=== PATIENT | male | born 1970 | race Caucasian/White ===

== ENCOUNTER 2023-05-25 20:53 | Observation (INO) ==
--- NOTE | 2023-05-25 21:08 | DR.ABDMALE ---
HPI Time seen Time Seen by Provider: 05/25/23 21:07 Complaint Chief Complaint Doctors Comments: Patient has a history of GERD and a history of diverticulosis. He has been having epigastric pain and left upper quadrant and lower quadrant pain for 2 days. Patient states that the pain is an aching pain. He has had nausea, felt distended,and has not eaten since yesterday. Patient denies: fever, hematemesis, hematochezia, weakness, dizziness,vomiting. PMH PMH Past Medical History: Depression, GERD, Hypertension and Sleep Apnea Past Surgical History: Yes Surgical History: Ortho Surgery and Other Family History Family Medical History: Diabetes Mellitus, Coronary Artery Disease, Heart Failure and Hypertension Social History Do you use any recreational Drugs:: No ROS Review of Systems Constitutional: No Symptoms Reported Eyes: No Symptoms Reported ENTM: No Symptoms Reported Respiratoy: No Symptoms Reported Cardiovascular: No Symptoms Reported Gastrointestinal/Abdominal: Abdominal Pain, Food Intolerance and Other (Abdominal Distention); negative Diarrhea, Nausea or Vomiting Genitourinary: No Symptoms Reported Neurological: No Symptoms Reported Musculoskeletal: No Symptoms Reported Integumentary: No Symptoms Reported Hematologic/Lymphatic: No Symptoms Reported Endocrine: No Symptoms Reported Psychiatric: No Symptoms Reported All Other Systems: Reviewed and Negative PE Vital Signs Vital Signs: Temp Pulse Resp BP Pulse Ox O2 Del Method 05/25/23 20:54 98.3 F 90 20 129/79 94 L Room Air General Limitations: No Limitations General Appearance: Alert and In No Apparent Distress Head Head Exam: Normal Inspection Eyes Eye exam: Normal Appearance ENT ENT Exam: Normal Exam Neck Neck Exam: Normal Inspection Chest Chest Inspection: Normal Inspection Respiratory Respiratory Exam: Normal Lung Sounds Bilat Respiratory Exam: Bilateral: Clear to Auscultation Cardiovascular Cardiovascular Exam: Regular Rate and Normal Rhythm Abdominal Exam Abdominal Exam: Distention, Tenderness and Hypoactive Bowel Sounds; negative Guarding or Rebound Abdominal Tenderness: LUQ, LLQ and Epigastrium Rectal Rectal Exam: Deferred Back Back Exam: Normal Inspection Extremeties Extremities Exam: Normal Inspection Exam: Male: Deferred Neurologic Neurological Exam: Alert and Oriented X3 Psychiatric Psychiatric Exam: Normal Affect and Normal Mood Skin Skin Exam: Warm, Dry, Intact and Normal Color MDM Differential Diagnosis Differential Diagnosis: Bowel Obstruction, Cholcystitis, Cholelethiasis, Diverticular disease, Inflammatory BD, Ischemic Bowel and Pancreatitis Other differential diagnosis: electrolyte disorder,perforation COURSE Treatment Treatment: Patient was brought to an exam rm and iv access was initatiated and labs wer drawn.Patient was given NS 1 bolus iv,protonix 4omg iv,and zofran 4 mg iv.Patient's abd/pelvis CT w/ contrast revealed a mechanical SBO likely secondary to adhesions. Discussed case with Dr Jauregui.Dr Jauregui has accepted the patient to his service. [facility] Labs Reviewed Laboratory Results Reviewed?: Yes 05/25/23 22:55 05/25/23 22:55 Laboratory: WBC 13.9 X10^3/uL (3.6-10.0) H 05/25/23 22:55 RBC 5.16 X10^6/uL (4.7-6.0) 05/25/23 22:55 Hgb 15.2 g/dL (13.5-18.0) 05/25/23 22:55 Hct 46.1 % (42.0-54.0) 05/25/23 22:55 MCV 89.4 fL (80.0-100.0) 05/25/23 22:55 MCH 29.4 pg (27.0-34.0) 05/25/23 22:55 MCHC 32.9 g/dL (33.0-35.0) L 05/25/23 22:55 RDW 13.5 % (11.6-16.5) 05/25/23 22:55 Plt Count 229 X10^3/uL (150.0-450.0) 05/25/23 22:55 MPV 8.5 fL (7.4-11.0) 05/25/23 22:55 Neut % (Auto) 84.4 % (42.0-75.0) H 05/25/23 22:55 Lymph % (Auto) 8.3 % (21.0-51.0) L 05/25/23 22:55 Kimball % (Auto) 6.0 % (0.0-13.0) 05/25/23 22:55 Eos % (Auto) 1.0 % (0.9-2.9) 05/25/23 22:55 Baso % (Auto) 0.3 % (0.2-1.0) 05/25/23 22:55 Neut # (Auto) 11.7 x10^3/uL (2.2-4.8) H 05/25/23 22:55 Lymph # (Auto) 1.1 X10^3/uL (1.3-2.9) L 05/25/23 22:55 Kimball # (Auto) 0.8 x10^3/uL (0.3-0.8) 05/25/23 22:55 Eos # (Auto) 0.1 x10^3/uL (0.0-0.2) 05/25/23 22:55 Baso # (Auto) 0.0 X10^3/uL (0.0-0.1) 05/25/23 22:55 Absolute Nucleated RBC 0.0 /100WBC 05/25/23 22:55 Sodium 136 mmol/L (136-145) 05/25/23 22:55 Corrected Sodium 137 mmol/L (136-145) 05/25/23 22:55 Potassium 3.7 mmol/L (3.5-5.1) 05/25/23 22:55 Chloride 102 mmol/L (98-107) 05/25/23 22:55 Carbon Dioxide 29.3 mmol/L (21-32) 05/25/23 22:55 BUN 10 mg/dL (7-18) 05/25/23 22:55 Creatinine 0.92 mg/dL (0.70-1.30) 05/25/23 22:55 Est GFR (MDRD) Af Amer > 60 (>60) 05/25/23 22:55 Est GFR (MDRD) Non-Af > 60 (>60) 05/25/23 22:55 Glucose 125 mg/dL (65-99) H 05/25/23 22:55 Lactic Acid 1.1 mmol/L (0.4-2.0) 05/25/23 22:55 Calcium 9.2 mg/dL (8.5-10.1) 05/25/23 22:55 Corrected Calcium 9.8 mg/dL (8.5-10.1) 05/25/23 22:55 Total Bilirubin 1.30 mg/dL (0.2-1.0) H 05/25/23 22:55 AST 26 Units/L (15-37) 05/25/23 22:55 ALT 56 Units/L (12-78) 05/25/23 22:55 Alkaline Phosphatase 97 Units/L (46-116) 05/25/23 22:55 C-Reactive Protein 27.00 mg/L (0-3.0) H 05/25/23 22:55 Total Protein 6.9 g/dL (6.4-8.2) 05/25/23 22:55 Albumin 3.3 g/dL (3.4-5.0) L 05/25/23 22:55 Globulin 3.6 g/dL (2.5-4.5) 05/25/23 22:55 Albumin/Globulin Ratio 0.9 Ratio (1.1-2.1) L 05/25/23 22:55 Amylase 11 Units/L (25-115) L 05/25/23 22:55 Lipase 9 Units/L (16-77) L 05/25/23 22:55 XRAY XRAY Interpreted by: Radiologist X-ray Results: EXAM: ABDOMEN/PELVIS WITH CON HISTORY: PT C/O LEFT UPPER ABD PAIN THAT STARTED LAST NIGHT; HERNIA SX, HTN, DIABETIC COMPARISON: None. TECHNIQUE: Axial CT images of the abdomen and pelvis were obtained after the administration of IV contrast and reformatted into coronal and sagittal planes for further evaluation. Radiation dose: 1035.10 mGy-cm total DLP FINDINGS: Lung bases are clear. Stomach appears normal. Diffuse fatty infiltration of the liver. Spleen, pancreas and adrenal glands are unremarkable. Gallbladder appears normal with no biliary dilatation. Homogeneous enhancement of the kidneys without hydronephrosis or hydroureter. Unremarkable appearance of the urinary bladder. Imaged reproductive structures are unremarkable. Colonic diverticulosis without diverticulitis. Multiple loops of [id number] distended gas and fluid-filled loops of sma ll bowel. Distal small bowel is decompressed with the transition point appearing to be in the right lower quadrant. No evidence of acute appendicitis. No pneumoperitoneum. No significant fluid collection. No adenopathy. No acute osseous abnormality. IMPRESSION: 1. Findings are concerning for a mild mechanical small bowel obstruction which appears to be in the right lower quadrant; likely secondary to adhesions. 2. Diffuse fatty infiltration of the liver. 3. Colonic diverticulosis without diverticulitis. THIS IS AN ELECTRONICALLY VERIFIED FINAL REPORT 05/26/2023 12:39 AM - Electronically signed by Alvaro Dobbins MD Opioid Opioid Risk Tool Total: 0 Total Score Risk Category: Low Risk Copyright: William CHANG predicting aberrant behaviors Discharge Plan Diagnosis Discharge Problem: SBO (small bowel obstruction) Discharge Plan Patient Disposition: 09 ADMITTED INPATIENT Condition: Stable Prescriptions: No Action telmisartan [Micardis] 40 MG tablet 40 mg PO DAILY tamsulosin [Flomax] 0.4 mg capsule 0.4 mg PO QDAY Qty: 10 0RF metformin 500 mg tablet 500 mg PO BID omeprazole 40 mg capsule,delayed release(DR/EC) 40 mg PO QDAY ropinirole 0.5 mg tablet 0.5 mg PO QDAY PRN ergocalciferol (vitamin D2) 1,250 mcg (50,000 unit) capsule 1,250 mcg PO WEEKLY escitalopram oxalate 10 mg tablet 10 mg PO QDAY Ozempic 0.25 mg or 0.5 mg (2 mg/3 mL) pen injector 0.25 mg SUBCUT WEEKLY Patient Comments: [NO ORIGINAL SIG] Claritin-D 24 Hour 10-240 mg Tablet Extended Release 24 Hr 1 tab PO QDAY PRN Health Concerns: Post Hospitalization: new medications and changes needed to prevent readmission or further decline. Pt educated and given instructions on all concerns. Plan of Treatment: Continue with present treatment and follow up plan. Pt is to keep follow up appointment as instructed and take medications as ordered. Orders to Discharge Patient Discharge Orders: Transfer (Routine); Ordered 05/26/23 Ordered By: Mei Mayo Follow ups/Referrals Follow ups/Referrals: ZECHARIAH FOX [Primary Care Provider] - 3 days Instructions Stand Alone Forms: Post Hospital Follow Up Care
[2023-05-25] MEDS ORDERED: NS 1,000 ML IV 1,000 ML IV ONE (22:43)
[2023-05-25] MEDS ORDERED: PROTONIX INJ 40 MG VIAL IVP ONE (22:43)
[2023-05-25] MEDS ORDERED: PROTONIX INJ 40 MG VIAL ONE (22:49)
[2023-05-25] MEDS ORDERED: NS 1,000 ML IV 1,000 ML ONE (22:49)
[2023-05-25 23:08] LABS: BASOPHILS % (AUTO) 0.3 % (0.2-1.0); EOSINOPHILS # (AUTO) 0.1 x10^3/uL (0.0-0.2); HEMATOCRIT 46.1 % (42.0-54.0); HEMOGLOBIN 15.2 g/dL (13.5-18.0); LYMPHOCYTES # (AUTO) 1.1 X10^3/uL (1.3-2.9); LYMPHOCYTES % (AUTO) 8.3 % (21.0-51.0); MEAN CORPUSCULAR HEMOGLOBIN 29.4 pg (27.0-34.0); MEAN CORPUSCULAR HGB CONC 32.9 g/dL (33.0-35.0); MEAN CORPUSCULAR VOLUME 89.4 fL (80.0-100.0); MEAN PLATELET VOLUME 8.5 fL (7.4-11.0); MONOCYTES # (AUTO) 0.8 x10^3/uL (0.3-0.8); NEUTROPHILS # (AUTO) 11.7 x10^3/uL (2.2-4.8); NEUTROPHILS % (AUTO) 84.4 % (42.0-75.0); PLATELET COUNT 229 X10^3/uL (150.0-450.0); RED BLOOD COUNT 5.16 X10^6/uL (4.7-6.0); RED CELL DISTRIBUTION WIDTH 13.5 % (11.6-16.5); WHITE BLOOD COUNT 13.9 X10^3/uL (3.6-10.0)
[2023-05-25 23:18] LABS: ALANINE AMINOTRANSFERASE 56 Units/L (12-78); ALBUMIN 3.3 g/dL (3.4-5.0); ALKALINE PHOSPHATASE 97 Units/L (46-116); AMYLASE 11 Units/L (25-115); ASPARTATE AMINO TRANSFERASE 26 Units/L (15-37); BLOOD UREA NITROGEN 10 mg/dL (7-18); CALCIUM 9.2 mg/dL (8.5-10.1); CARBON DIOXIDE 29.3 mmol/L (21-32); CHLORIDE 102 mmol/L (98-107); COR CA(FOR HYPOALB) 9.8 mg/dL (8.5-10.1); COR NA(FOR HYPERGLY) 137 mmol/L (136-145); CREATININE 0.92 mg/dL (0.70-1.30); GLUCOSE 125 mg/dL (65-99); LIPASE 9 Units/L (16-77); POTASSIUM 3.7 mmol/L (3.5-5.1); SODIUM 136 mmol/L (136-145); TOTAL PROTEIN 6.9 g/dL (6.4-8.2); eGFR NON BLACK RACES > 60 (>60)
[2023-05-25] MEDS ORDERED: OMNIPAQUE 350 mg/mL 100 mL BTL 100 ML ONE (23:37)
--- NOTE | 2023-05-26 00:42 | CT ---
EXAM:ABDOMEN/PELVIS WITH CONHISTORY:PT C/O LEFT UPPER ABD PAIN THAT STARTED LAST NIGHT; HERNIA SX, HTN, DIABETICCOMPARISON:None.TECHNIQUE:Axial CT images of the abdomen and pelvis were obtained after the administration of IV contrast and reformatted into coronal and sagittal planes for further evaluation.Radiation dose: 1035.10 mGy-cm total DLPFINDINGS:Lung bases are clear.Stomach appears normal.Diffuse fatty infiltration of the liver.Spleen, pancreas and adrenal glands are unremarkable.Gallbladder appears normal with no biliary dilatation.Homogeneous enhancement of the kidneys without hydronephrosis or hydroureter.Unremarkable appearance of the urinary bladder.Imaged reproductive structures are unremarkable.Colonic diverticulosis without diverticulitis.Multiple loops of gleb-up-kdwquzeoac distended gas and fluid-filled loops of small bowel. Distal small bowel is decompressed with the transition point appearing to be in the right lower quadrant.No evidence of acute appendicitis.No pneumoperitoneum.No significant fluid collection.No adenopathy.No acute osseous abnormality.IMPRESSION:1. Findings are concerning for a mild mechanical small bowel obstruction which appears to be in the right lower quadrant; likely secondary to adhesions.2. Diffuse fatty infiltration of the liver.3. Colonic diverticulosis without diverticulitis.THIS IS AN ELECTRONICALLY VERIFIED FINAL REPORT05/26/2023 12:39 AM - Electronically signed by Alvaro Dobbins MD
[2023-05-26] MEDS ORDERED: DILAUDID INJ IVP PRN (02:07)
[2023-05-26] MEDS ORDERED: ZOFRAN INJ 4 MG VIAL IVP ONE (02:08)
[2023-05-26] MEDS ORDERED: ZOSYN VIAL 3.375 GRAMS 3.375 G in NS 100 ML IV 100 ML IV SCH (02:12)
[2023-05-26] MEDS ORDERED: ZOFRAN INJ 4 MG VIAL ONE (02:19)
[2023-05-26] MEDS ORDERED: DILAUDID INJ ONE (02:19)
[2023-05-26] MEDS ORDERED: NS 100 ML IV 100 ML ONE ×2 (02:31→12:26)
[2023-05-26] MEDS ORDERED: LR 1,000 ML IV 1,000 ML IV ONE (02:31)
[2023-05-26] MEDS ORDERED: ZOSYN VIAL 3.375 GRAMS IV ONE (02:31)
[2023-05-26] MEDS: LR 1,000 ML IV 1,000 ML IV SCH ×4 (02:50→23:04)
[2023-05-26] MEDS ORDERED: ROPINIROLE 0.5 MG PO PRN (03:47)
[2023-05-26] MEDS ORDERED: LORATADINE PO PRN (03:47)
[2023-05-26] MEDS ORDERED: [UNRECOGNIZED DRUG - OTHER] PO PRN (03:47)
[2023-05-26] MEDS ORDERED: PSEUDOEPHEDRINE PO PRN (03:47)
[2023-05-26 04:11] VITALS: BMI 47.3
[2023-05-26] MEDS: ZOSYN VIAL 3.375 GRAMS 3.375 G in NS 100 ML IV 100 ML IV SCH ×3 (04:13→20:11)
[2023-05-26 04:26] LABS: HEMOGLOBIN 14.3 g/dL (13.5-18.0); MEAN PLATELET VOLUME 8.4 fL (7.4-11.0)
[2023-05-26 04:32] LABS: BASOPHILS % (AUTO) 0.5 % (0.2-1.0); EOSINOPHILS # (AUTO) 0.3 x10^3/uL (0.0-0.2); EOSINOPHILS % (AUTO) 2.4 % (0.9-2.9); HEMATOCRIT 43.1 % (42.0-54.0); LYMPHOCYTES # (AUTO) 1.6 X10^3/uL (1.3-2.9); MEAN CORPUSCULAR HEMOGLOBIN 29.7 pg (27.0-34.0); MEAN CORPUSCULAR HGB CONC 33.1 g/dL (33.0-35.0); MEAN CORPUSCULAR VOLUME 89.6 fL (80.0-100.0); NEUTROPHILS # (AUTO) 7.9 x10^3/uL (2.2-4.8); NEUTROPHILS % (AUTO) 73.1 % (42.0-75.0); PLATELET COUNT 211 X10^3/uL (150.0-450.0); RED BLOOD COUNT 4.81 X10^6/uL (4.7-6.0); RED CELL DISTRIBUTION WIDTH 13.6 % (11.6-16.5); WHITE BLOOD COUNT 10.8 X10^3/uL (3.6-10.0)
[2023-05-26 04:35] LABS: ALANINE AMINOTRANSFERASE 47 Units/L (12-78); ALKALINE PHOSPHATASE 86 Units/L (46-116); ASPARTATE AMINO TRANSFERASE 21 Units/L (15-37); BLOOD UREA NITROGEN 9 mg/dL (7-18); CALCIUM 8.7 mg/dL (8.5-10.1); CARBON DIOXIDE 30.1 mmol/L (21-32); CHLORIDE 104 mmol/L (98-107); COR CA(FOR HYPOALB) 9.5 mg/dL (8.5-10.1); COR NA(FOR HYPERGLY) 136 mmol/L (136-145); CREATININE 0.93 mg/dL (0.70-1.30); GLUCOSE 115 mg/dL (65-99); POTASSIUM 3.9 mmol/L (3.5-5.1); SODIUM 136 mmol/L (136-145); TOTAL PROTEIN 6.3 g/dL (6.4-8.2); eGFR NON BLACK RACES > 60 (>60)
[2023-05-26] MEDS ORDERED: REQUIP PO PRN (04:38)
[2023-05-26] MEDS: FLOMAX PO SCH (08:10)
[2023-05-26] MEDS: PriLOSEC PO SCH (08:11)
[2023-05-26] MEDS: MICARDIS PO SCH (08:11)
[2023-05-26] MEDS: LEXAPRO PO SCH (08:11)
[2023-05-26] MEDS ORDERED: VITAMIN D (1.25MG) PO SCH (09:00)
[2023-05-26] MEDS ORDERED: PATIENT'S HOME MEDICATION (Omeprazole 40 mg capsule,delayed release(DR/EC)) PO SCH (09:00)
[2023-05-26] MEDS: LOVENOX INJ 40 MG SYR SC SCH (16:00)
[2023-05-26] MEDS ORDERED: TORADOL 15 MG VIAL IM ONE (16:13)
[2023-05-26] MEDS ORDERED: NS 500 ML IV 500 ML IV ONE (19:47)
[2023-05-26] MEDS ORDERED: MAALOX or MYLANTA PO PRN (20:13)
[2023-05-26 23:55] VITALS: RESP 20
[2023-05-27] MEDS: ZOSYN VIAL 3.375 GRAMS 3.375 G in NS 100 ML IV 100 ML IV SCH (03:43)
[2023-05-27] MEDS: LR 1,000 ML IV 1,000 ML IV SCH (05:40)
--- NOTE | 2023-05-27 05:49 | RAD ---
PROCEDURE: Abdomen X-ray 1 View .HISTORY: Small-bowel obstruction.TECHNIQUE: AP supine abdomen view .COMPARISON: CT abdomen pelvis 05/25/2023.TECHNICAL QUALITY: Satisfactory .FINDINGS:Gas and feces in the colon without distension. Some air in small bowel without distension. The dilated bowel loops of CT or predominantly fluid filled and may not be visualized.Contrast in the urinary bladder.IMPRESSION:1. Nonspecific bowel gas pattern.2. The dilated small bowel loops seen on CT may not be visible due to fluid in the lumen.Electronically signed by: Go Brown (May 27, 2023 05:48:09)
[2023-05-27 06:26] LABS: BASOPHILS % (AUTO) 0.3 % (0.2-1.0); EOSINOPHILS # (AUTO) 0.4 x10^3/uL (0.0-0.2); EOSINOPHILS % (AUTO) 4.3 % (0.9-2.9); HEMATOCRIT 40.8 % (42.0-54.0); HEMOGLOBIN 13.6 g/dL (13.5-18.0); LYMPHOCYTES # (AUTO) 2.1 X10^3/uL (1.3-2.9); LYMPHOCYTES % (AUTO) 21.3 % (21.0-51.0); MEAN CORPUSCULAR HEMOGLOBIN 30.1 pg (27.0-34.0); MEAN CORPUSCULAR HGB CONC 33.4 g/dL (33.0-35.0); MEAN PLATELET VOLUME 8.5 fL (7.4-11.0); MONOCYTES # (AUTO) 0.9 x10^3/uL (0.3-0.8); MONOCYTES % (AUTO) 9.1 % (0.0-13.0); NEUTROPHILS # (AUTO) 6.3 x10^3/uL (2.2-4.8); PLATELET COUNT 213 X10^3/uL (150.0-450.0); RED BLOOD COUNT 4.54 X10^6/uL (4.7-6.0); RED CELL DISTRIBUTION WIDTH 13.8 % (11.6-16.5); WHITE BLOOD COUNT 9.7 X10^3/uL (3.6-10.0)
[2023-05-27 06:37] LABS: ALANINE AMINOTRANSFERASE 50 Units/L (12-78); ALBUMIN 2.9 g/dL (3.4-5.0); ALKALINE PHOSPHATASE 80 Units/L (46-116); ASPARTATE AMINO TRANSFERASE 24 Units/L (15-37); BLOOD UREA NITROGEN 11 mg/dL (7-18); CALCIUM 8.4 mg/dL (8.5-10.1); CARBON DIOXIDE 29.8 mmol/L (21-32); CHLORIDE 105 mmol/L (98-107); COR CA(FOR HYPOALB) 9.3 mg/dL (8.5-10.1); CREATININE 1.06 mg/dL (0.70-1.30); GLUCOSE 105 mg/dL (65-99); POTASSIUM 3.5 mmol/L (3.5-5.1); SODIUM 139 mmol/L (136-145); TOTAL PROTEIN 6.1 g/dL (6.4-8.2); eGFR NON BLACK RACES > 60 (>60)
[2023-05-27 08:38] VITALS: BP 117/78; PULSE 84; TEMP 98.1; O2SAT 91
[2023-05-27] MEDS ORDERED: LEXAPRO ONE (09:03)
[2023-05-27] MEDS: FLOMAX PO SCH (10:00)
[2023-05-27] MEDS: PriLOSEC PO SCH (10:00)
[2023-05-27] MEDS: LOVENOX INJ 40 MG SYR SC SCH (10:00)
[2023-05-27] MEDS: MICARDIS PO SCH (10:00)
[2023-05-27] MEDS: LEXAPRO PO SCH (10:00)
== END 2023-05-27 13:00 | disposition home or self-care (01) ==
LOC: ER 20:53 → INTOOBSV 05-26 02:21 → OBS 05-26 02:21 → MED/SURG 05-26 15:14
PROVIDERS: ADMIT Surgery; ATTEND Surgery
DX: I10 Essential (primary) hypertension; E11.65 Type 2 diabetes mellitus with hyperglycemia; R79.82 Elevated C-reactive protein (CRP); R10.13 Epigastric pain; K56.690 Other partial intestinal obstruction; K76.0 Fatty (change of) liver, not elsewhere classified; I25.10 Atherosclerotic heart disease of native coronary artery without angina pectoris; K21.9 Gastro-esophageal reflux disease without esophagitis; Z87.19 Personal history of other diseases of the digestive system; K52.89 Other specified noninfective gastroenteritis and colitis